=== PATIENT | female | born 1975 | race Caucasian/White ===

== ENCOUNTER 2021-08-04 11:10 | Emergency (ER) | payer BC ==
[2021-08-04 12:04] LABS: ANION GAP 18.4 mEq/L (7-13)
--- NOTE | 2021-08-04 12:47 | EDM.PDOC ---
ED HPI GENERAL MEDICAL PROBLEM - General Chief Complaint: Cardiovascular Problem Stated Complaint: HAS SHAKES / HEART BEATING VERY FAST Time Seen by Provider: 08/04/21 12:47 Source of Information: Reports: Patient, RN, RN Notes Reviewed History Limitations: Reports: No Limitations - History of Present Illness INITIAL COMMENTS - FREE TEXT/NARRATIVE: Pt presents to ER from work with c/o rapid heart rate with a near fainting episode while at work today. Pt states she felt well today, until she was standing by two employees and began seeing a [place] of dark "floaters" and felt very lightheaded. Pt states her breath became fast, and her Fit-bit watch said her heart rate was 129. Pt describes being diaphoretic, nauseated, and nearly fainted. Pt denies chest pain, fever, vomiting, diarrhea, or loss of bowel or bladder control. Now in the ER she is feeling back to normal. Denies Hx of arrhythmia, CAD/NE, CVA, DM, or syncope. 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 Epigastric Pain Score (Numeric/FACES): 6 - Related Data Allergies Allergy/AdvReac Type Severity Reaction Status Date / Time cat dander Allergy Other Verified 08/04/21 11:33 Home Meds: Home Meds Omeprazole 40 mg PO DAILY 08/04/21 [History] hydrALAZINE [Apresoline] 25 mg PO DAILY 08/04/21 [History] hydrOXYzine HCL [Atarax] 25 mg PO DAILY 08/04/21 [History] lisinopriL [Lisinopril] 30 mg PO DAILY 08/04/21 [History] Past Medical History HEENT History: Reports: None Cardiovascular History: Reports: Hypertension Respiratory History: Reports: COPD Gastrointestinal History: Reports: None Genitourinary History: Reports: None [employer] History: Reports: None Musculoskeletal History: Reports: None Neurological History: Reports: None Psychiatric History: Reports: Anxiety Endocrine/Metabolic History: Reports: None Hematologic History: Reports: None Immunologic History: Reports: None Oncologic (Cancer) History: Reports: None Dermatologic History: Reports: None - Infectious Disease History Infectious Disease History: Reports: None - Past Surgical History Head Surgeries/Procedures: Reports: None Social & Family History - Family History Family Medical History: No Pertinent Family History - Tobacco Use Tobacco Use Status *Q: Former Tobacco User Years of Tobacco use: 10 Packs/Tins Daily: 0 Used Tobacco, but Quit: Yes Month/Year Tobacco Last Used: - Caffeine Use Caffeine Use: Reports: Coffee, Energy Drinks, Soda, Tea - Recreational Drug Use Recreational Drug Use: No - Living Situation & Occupation Living situation: Reports: Occupation: Employed ED ROS GENERAL - Review of Systems Review Of Systems: Comprehensive ROS is negative, except as noted in HPI. ED EXAM, GENERAL - Physical Exam Exam: See Below Exam Limited By: No Limitations General Appearance: Alert, WD/WN, No Apparent Distress Eye Exam: Bilateral Eye: EOMI, Normal Inspection, PERRL Nose: Normal Inspection, Normal Mucosa, No Blood Throat/Mouth: Normal Inspection, Normal Lips, Normal Teeth, Normal Gums, Normal Oropharynx, Normal Voice, No Airway Compromise Head: Atraumatic, Normocephalic Neck: Normal Inspection, Supple, Non-Tender, Full Range of Motion Respiratory/Chest: No Respiratory Distress, Lungs Clear, Normal Breath Sounds, No Accessory Muscle Use, Chest Non-Tender Cardiovascular: Normal Peripheral Pulses, Regular Rate, Rhythm, No Edema, No Gallop, No JVD, No Murmur, No Rub GI/Abdominal: Normal Bowel Sounds, Soft, Non-Tender Back Exam: Normal Inspection Extremities: Normal Inspection Neurological: Alert, Oriented, CN II-XII Intact, Normal Cognition, Normal Gait, No Motor/Sensory Deficits Psychiatric: Normal Affect, Normal Mood Skin Exam: Warm, Dry, Intact, Normal Color, No Rash #1 Interpretation EKG Date: 08/04/21 Time: 11:32 Rhythm: Other (SR) Rate (Beats/Min): 98 Bob White: Normal P-Wave: Present (with possible left atrial enlargement) QRS: Normal ST-T: Normal QT: Normal Comparison: NA - No Prior EKG Course - Vital Signs Last Recorded V/S: Last Vital Signs Temp 97.5 F 08/04/21 11:23 Pulse 113 H 08/04/21 11:23 Resp 18 08/04/21 11:23 BP 122/75 08/04/21 11:23 Pulse Ox 100 08/04/21 11:23 - Orders/Labs/Meds Orders: Active Orders 24 hr Category Date Time Status Orthostatic Vital Signs [RC] ASDIRECTED Care 08/04/21 12:57 Active Peripheral IV Care [RC] . DIRECTED Care 08/04/21 13:23 Active Sodium Chloride 0.9% [Normal Saline] 1,000 ml Med 08/04/21 13:23 Active IV .BOLUS Sodium Chloride 0.9% [Saline Flush] Med 08/04/21 13:23 Active 10 ml FLUSH ASDIRECTED PRN Peripheral IV Insertion Adult [OM.PC] Stat Oth 08/04/21 13:23 Ordered Medication Orders Sodium Chloride (Normal Saline) 1,000 mls @ 999 mls/hr IV .BOLUS ONE Stop: 08/04/21 14:23 Sodium Chloride (Sodium Chloride 0.9% 10 Ml Syringe) 10 ml FLUSH ASDIRECTED PRN PRN Reason: Keep Vein Open Labs: Laboratory Tests 08/04/21 08/04/21 Range/Units 11:30 11:30 WBC 8.1 (5.0-10.0) 10^3/uL RBC 4.72 (4.2-5.4) 10^6/uL Hgb 10.3 L (12.0-16.0) g/dL Hct 33.4 L (37.0-47.0) % MCV 70.8 L (80-100) fL MCH 21.8 L (27.0-34.0) pg MCHC 30.8 L (33.0-35.0) g/dL Plt Count 606 H (150-450) 10^3/uL Sodium 138 (136-145) mmol/L Potassium 3.4 L (3.5-5.1) mmol/L Chloride 98 (98-107) mmol/L Carbon Dioxide 25 (21-32) mmol/L Anion Gap 18.4 H (7-13) mEq/L BUN 18 (7-18) mg/dL Creatinine 1.43 H (0.55-1.02) mg/dL Est Cr Clr Drug Dosing 44.23 mL/min Estimated GFR (MDRD) 40 BUN/Creatinine Ratio 12.6 (No establ ref range) Glucose 83 (70-99) mg/dL Calcium 9.0 (8.5-10.1) mg/dL Total Bilirubin 0.9 (0.2-1.0) mg/dL AST 14 L (15-37) U/L ALT 17 (14-59) U/L Alkaline Phosphatase 39 L (46-116) U/L Troponin I High Sens 11 (<=51) pg/mL Total Protein 8.4 H (6.4-8.2) g/dL Albumin 4.0 (3.4-5.0) g/dL Globulin 4.4 Albumin/Globulin Ratio 0.9 Meds: Medications Generic Name Dose Route Start Last Admin Trade Name Freq PRN Reason Stop Dose Admin Sodium Chloride 1,000 mls @ 999 mls/hr 08/04/21 13:23 Normal Saline IV 08/04/21 14:23 .BOLUS ONE Sodium Chloride 10 ml 08/04/21 13:23 Sodium Chloride 0.9% 10 Ml Syringe FLUSH ASDIRECTED PRN Keep Vein Open - Radiology Interpretation Free Text/Narrative:: CT Head: no acute findings per Rad. report. XR Chest: small subtle RUL nodule, otherwise no acute process. Pt advised of the nodule and instructed to f/u this week with her PCP for further evaluation and CT as recommended by the radiologist. Departure - Departure Time of Disposition: 14:02 Disposition: Home, Self-Care 01 Condition: Good Clinical Impression: Near syncope, Sinus tachycardia, Right upper lobe pulmonary nodule Instructions: Near-Syncope, Pulmonary Nodule, Sinus Tachycardia Forms: ED Department Discharge Additional Instructions: Drink plenty of water. Follow up in clinic with your primary doctor for further evaluation. Ask your doctor to review the lab, EKG, and imaging studies from today's ER visit. Ask your doctor to consider whether a cardiac event monitor, and an outpatient C.T. Chest scan should be obtained. Return to ER if worse at any time. Sepsis Event Note (ED) - Evaluation Sepsis Screening Result: No Definite Risk - Focused Exam Vital Signs: Vital Signs Temp Pulse Resp BP Pulse Ox 08/04/21 11:23 97.5 F 113 H 18 122/75 100 - My Orders Last 24 Hours: My Active Orders 08/04/21 12:57 Orthostatic Vital Signs [RC] ASDIRECTED 08/04/21 13:23 Peripheral IV Care [RC] . DIRECTED Sodium Chloride 0.9% [Normal Saline] 1,000 ml IV .BOLUS Sodium Chloride 0.9% [Saline Flush] 10 ml FLUSH ASDIRECTED PRN Peripheral IV Insertion Adult [OM.PC] Stat - Assessment/Plan Last 24 Hours: My Active Orders 08/04/21 12:57 Orthostatic Vital Signs [RC] ASDIRECTED 08/04/21 13:23 Peripheral IV Care [RC] . DIRECTED Sodium Chloride 0.9% [Normal Saline] 1,000 ml IV .BOLUS Sodium Chloride 0.9% [Saline Flush] 10 ml FLUSH ASDIRECTED PRN Peripheral IV Insertion Adult [OM.PC] Stat
[2021-08-04] MEDS ORDERED: Sodium Chloride 0.9% 1,000 ML IV ONE (13:23)
[2021-08-04] MEDS ORDERED: Sodium Chloride 0.9% 10 ML Syringe FLUSH PRN (13:23)
--- NOTE | 2021-08-04 13:25 | CR ---
EXAMINATION: Chest 1V Frontal SEX: Female AGE: 46 years CLINICAL HISTORY: 46-year-old female emergency department. Near syncope episode. Interpretation: Dorsolumbar scoliosis. External media monitor leads. Normal cardiac silhouette (size and configuration). No pulmonary vascular congestion, cephalization of flow, alveolar edema or dependent pleural fluid accumulation. No lung mass or hilar lymphadenopathy. Normal midline tracheal bronchial airway. No alveolar consolidation, air bronchograms or peripheral "groundglass" reticular lung densities. Note: Subtle nodular density RUL superimposed by the sixth rib on the right, posteriorly, that is new since comparison and January 2011. Recommend follow-up unenhanced CT scan of the chest, particularly if patient is a smoker. CONCLUSION: No acute cardiopulmonary abnormality. Scoliosis. Subtle nodular density RUL.
--- NOTE | 2021-08-04 13:30 | CT ---
EXAMINATION: Head wo Cont SEX: Female AGE: 46 years CLINICAL HISTORY: 46-year-old female with visual changes and near syncopal episode. CT scan head 02 November 2017 for headaches was reportedly "negative". Scan technique: Volume acquisition of data emergency unenhanced CT scan of the head and brain obtained with the patient lying supine on the Siemens multi slice scanner [place], [place]. All data archived in the PAC system for storage, reformatting axial/sagittal/coronal planes and study (bone/brain windows). Interpretation: Negative. No new intracranial abnormalities identified in the interval since 02 November 2017 comparison exam. 1. Uniformly thick bony calvarium and symmetric clear pneumatization of the paranasal/mastoid sinuses. Normal TMJs. 2. Symmetric kumar-white matter pattern. Underlying mirror-image normal ventricular system. No hydrocephalus. 3. No new supratentorial or posterior fossa mass lesion. No suprasellar mass or calcifications. 4. Cerebellum and brainstem unremarkable. Faint midline pineal calcification. 5. No focal areas of ischemic infarct or signs of encephalomalacia. No arachnoid cyst. 6. No sign of acute intracerebral, intraventricular or subarachnoid bleed. No extracerebral/intracranial epidural or subdural hematoma.
== END 2021-08-04 14:43 | disposition home or self-care (01) ==
LOC: DL.ED 11:10
DX: R91.1 Solitary pulmonary nodule (principal); R00.0 Tachycardia, unspecified; R55 Syncope and collapse; I10 Essential (primary) hypertension; J44.9 Chronic obstructive pulmonary disease, unspecified; Z87.891 Personal history of nicotine dependence; Z91.048 Other nonmedicinal substance allergy status; Z79.899 Other long term (current) drug therapy
CPT/HCPCS: 36415; 70450; 71045; 80053; 84484; 85027; 93005; 99285; J7030

== ENCOUNTER 2023-03-01 05:18 | Day surgery (SDC) | payer BC ==
[2023-03-01] MEDS: Dextrose 5%-0.45% NaCl 1,000 ML IV SCH (06:00)
[2023-03-01] MEDS ORDERED: fentaNYL 100 MCG/2 ML SDV IV ONE (06:40)
[2023-03-01] MEDS ORDERED: Midazolam 1 MG/ML 2 ML SDV IV ONE (06:40)
[2023-03-01] MEDS ORDERED: Midazolam 1 MG/ML 2 ML SDV ONE (06:40)
[2023-03-01] MEDS ORDERED: fentaNYL 100 MCG/2 ML SDV ONE (06:40)
[2023-03-01] MEDS: fentaNYL 100 MCG/2 ML SDV IV ONE ×2 (06:40→06:41)
[2023-03-01] MEDS: Midazolam 1 MG/ML 2 ML SDV IV ONE ×2 (06:41→06:42)
== END 2023-03-01 08:38 | disposition home or self-care (01) ==
LOC: DL.ENDO 05:18
PROVIDERS: ATTEND Internal Medicine Gastroenterology
DX: K29.50 Unspecified chronic gastritis without bleeding (principal); K22.89 Other specified disease of esophagus; K21.9 Gastro-esophageal reflux disease without esophagitis; D50.0 Iron deficiency anemia secondary to blood loss (chronic); E78.5 Hyperlipidemia, unspecified; R05.3 Chronic cough; R63.4 Abnormal weight loss; F32.A Depression, unspecified; K80.20 Calculus of gallbladder without cholecystitis without obstruction; I10 Essential (primary) hypertension; Z88.8 Allergy status to other drugs, medicaments and biological substances
CPT/HCPCS: 81025; 87077; J2250; J3010; J7042

== ENCOUNTER 2023-03-02 06:42 | Day surgery (SDC) | payer BC ==
[2023-03-02] MEDS: Dextrose 5%-0.45% NaCl 1,000 ML IV SCH (07:11)
[2023-03-02] MEDS ORDERED: Midazolam 1 MG/ML 2 ML SDV ONE (08:18)
[2023-03-02] MEDS ORDERED: Midazolam 1 MG/ML 2 ML SDV IV ONE (08:18)
[2023-03-02] MEDS ORDERED: fentaNYL 100 MCG/2 ML SDV ONE (08:19)
[2023-03-02] MEDS ORDERED: fentaNYL 100 MCG/2 ML SDV IV ONE (08:19)
[2023-03-02] MEDS: fentaNYL 100 MCG/2 ML SDV IV ONE ×5 (08:25→08:33)
[2023-03-02] MEDS: Midazolam 1 MG/ML 2 ML SDV IV ONE ×6 (08:26→08:30)
== END 2023-03-02 09:59 | disposition home or self-care (01) ==
LOC: DL.ENDO 06:42
PROVIDERS: ATTEND Internal Medicine Gastroenterology
DX: D50.9 Iron deficiency anemia, unspecified (principal); K21.9 Gastro-esophageal reflux disease without esophagitis; R05.3 Chronic cough; R63.4 Abnormal weight loss; E78.5 Hyperlipidemia, unspecified; F32.A Depression, unspecified; M51.9 Unspecified thoracic, thoracolumbar and lumbosacral intervertebral disc disorder; I10 Essential (primary) hypertension; Z88.8 Allergy status to other drugs, medicaments and biological substances
CPT/HCPCS: J2250; J3010; J7042

== ENCOUNTER 2023-06-07 10:29 | Emergency (ER) | payer BC ==
[2023-06-07 11:42] LABS: BASOPHILS PERCENT AUTO 0.5 % (0.0-1.0); EOSINOPHILS PERCENT AUTO 2.4 % (1.0-3.0); HEMATOCRIT 38.2 % (37.0-47.0); HEMOGLOBIN 12.4 g/dL (12.0-16.0); LYMPHOCYTES PERCENT AUTO 22.2 % (20.5-50.1); MEAN CORPUSCULAR HEMOGLOBIN 27.8 pg (27.0-34.0); MEAN CORPUSCULAR HGB CONC 32.5 g/dL (33.0-35.0); MEAN CORPUSCULAR VOLUME 85.7 fL (80-100); MONOCYTES PERCENT AUTO 6.3 % (2-8); NEUTROPHILS PERCENT AUTO 68.6 % (42.2-75.2); PLATELET COUNT,PLT 439 10^3/uL (150-450); RED BLOOD CELL COUNT 4.46 10^6/uL (4.2-5.4); WHITE BLOOD CELL COUNT,WBC 7.5 10^3/uL (5.0-10.0)
[2023-06-07 12:05] LABS: A/G RATIO 0.8; ALBUMIN 3.5 g/dL (3.4-5.0); ANION GAP 11.5 mEq/L (7-13); BILIRUBIN TOTAL 0.6 mg/dL (0.2-1.0); BUN/CREATININE RATIO 9.7 (No establ ref range); CALCIUM 8.8 mg/dL (8.5-10.1); CREATININE 0.93 mg/dL (0.55-1.02); EST CRCL DRUG DOSING (CG) 66.57 mL/min; POTASSIUM,K 3.5 mmol/L (3.5-5.1)
[2023-06-07] MEDS ORDERED: Proparacaine 0.5% Ophth Soln 15 ML Bottle EYEBOTH STA (12:39)
== END 2023-06-07 13:57 | disposition home or self-care (01) ==
LOC: DL.ED 10:29
DX: I10 Essential (primary) hypertension (principal); H53.8 Other visual disturbances; E78.00 Pure hypercholesterolemia, unspecified; J44.9 Chronic obstructive pulmonary disease, unspecified; K21.9 Gastro-esophageal reflux disease without esophagitis; Z79.899 Other long term (current) drug therapy; Z88.8 Allergy status to other drugs, medicaments and biological substances; Z91.048 Other nonmedicinal substance allergy status
CPT/HCPCS: 36415; 80053; 84484; 85025; 93005; 93010; 99284; J3490